=== PATIENT | female | born 1940 | race Caucasian/White ===

== ENCOUNTER 2020-01-03 12:41 | Emergency (ER) | payer MEDICARE, OTHER ==
[2020-01-03] MEDS ORDERED: fentaNYL 50 MCG/ML SDV IVPUSH ONE (13:00)
[2020-01-03] MEDS ORDERED: Lactated Ringers 1,000 ML IV ONE (13:10)
--- NOTE | 2020-01-03 13:15 | EDM.PDOC ---
ED HPI GENERAL MEDICAL PROBLEM - General Chief Complaint: General Stated Complaint: COUGHING/WEAKNESS Time Seen by Provider: 01/03/20 12:42 Source of Information: Reports: Patient - History of Present Illness INITIAL COMMENTS - FREE TEXT/NARRATIVE: 79-year-old female quite well at baseline only takes medication for hypertension who is presenting with intermittent weakness intermittent chills and nonpro ductive cough for the last 4 days. The cough is preventing her from sleeping at night. She did travel recently to visit her son who is passing away from cancer. She was seen at another facility and had a coronavirus test taken at that time and was told that the results would be back in 7 to 10 days. She has no documented fevers. She has no chest pain she has no shortness of breath no nausea no lightheadedness no vomiting but does report dry mouth. Symptoms are constant or bothersome most at night no alleviating factors radiation or other associated symptoms. She denies sore throat she denies rhinorrhea she denies nasal congestion. - Related Data Allergies Allergy/AdvReac Type Severity Reaction Status Date / Time No Known Allergies Allergy Verified 01/03/20 13:05 Home Meds: Home Meds Aspirin [Halfprin] 81 mg PO DAILY 01/03/20 [History] Benzonatate [Tessalon Perle] 100 mg PO TID PRN 10 Days #30 capsule 01/03/20 [Rx] Shun/D3/Mag11/Zinc/[employer]/Skip/Bor [Caltrate 600+D Plus Tablet] 1,200 mg PO DAILY 01/03/20 [History] Doxycycline [Vibramycin] 100 mg PO BID 7 Days #14 cap 01/03/20 [Rx] Metoprolol Succinate 200 mg PO DAILY 01/03/20 [History] Mirtazapine 15 mg PO BEDTIME 01/03/20 [History] Omeprazole Magnesium [Prilosec Otc] 20 mg PO DAILY 01/03/20 [History] Potassium Citrate [Potassium Citrate ER] 10 meq PO BID 7 Days #14 tablet.er 01/03/20 [Rx] Thiamine HCl [B-1] 250 mg PO DAILY 01/03/20 [History] hydroCHLOROthiazide [Hydrochlorothiazide] 12.5 mg PO DAILY 01/03/20 [History] ED ROS GENERAL - Review of Systems Review Of Systems: See Below Free Text/Narrative/Comment: General: No fever. Skin: No rash. Eyes: No vision problems. ENT: No sore throat. Neck: No neck stiffness. Respiratory: Per HPI Cardiac: No chest pain. Gastrointestinal: No nausea, vomiting or abdominal pain. Urinary: No dysuria. Musculoskeletal: No myalgias/arthralgias. Neurologic: No headache. ED EXAM, GENERAL - Physical Exam Exam: See Below Free Text/Narrative:: General Appearance: No acute distress, appears comfortable Skin: No rash HEENT: Normocephalic/atraumatic, sclera anicteric, mucous membranes moist Neck: Normal range of motion Chest and Lungs: Bilateral breath sounds, clear to auscultation Cardiovascular: Regular rate and rhythm, no murmur Abdomen: Soft, non-tender Back: Normal Musculoskeletal: No edema or tenderness Neurologic: Awake, alert, no obvious deficits, moving all extremities Psychiatric: Appropriate, cooperative EKG INTERPRETATION EKG Interpretation Comments: EKG obtained at 1315 demonstrates sinus tachycardia with a rate of 111 normal axis and intervals no acute ischemia Course - Vital Signs Last Recorded V/S: Last Vital Signs Temp 96.8 F L 01/03/20 14:58 Pulse 100 01/03/20 14:58 Resp 15 01/03/20 14:58 BP 151/83 H 01/03/20 14:58 Pulse Ox 96 01/03/20 14:58 - Orders/Labs/Meds Orders: Active Orders 24 hr Category Date Time Status EKG Documentation Completion [RC] STAT Care 01/03/20 13:08 Active Labs: Laboratory Tests 01/03/20 01/03/20 01/03/20 Range/Units 13:31 13:31 13:31 WBC 9.73 (4.0-11.0) K/uL RBC 4.08 L (4.30-5.90) M/uL Hgb 12.1 (12.0-16.0) g/dL Hct 37.1 (36.0-46.0) % MCV 90.9 (80.0-98.0) fL MCH 29.7 (27.0-32.0) pg MCHC 32.6 (31.0-37.0) g/dL RDW Std Deviation 44.2 (28.0-62.0) fl RDW Coeff of Lam 13 (11.0-15.0) % Plt Count 327 (150-400) K/uL MPV 9.20 (7.40-12.00) fL Neut % (Auto) 74.6 (48.0-80.0) % Lymph % (Auto) 12.3 L (16.0-40.0) % [place] % (Auto) 12.2 (0.0-15.0) % Eos % (Auto) 0.5 (0.0-7.0) % Baso % (Auto) 0.4 (0.0-1.5) % Neut # (Auto) 7.3 H (1.4-5.7) K/uL Lymph # (Auto) 1.2 (0.6-2.4) K/uL [place] # (Auto) 1.2 H (0.0-0.8) K/uL Eos # (Auto) 0.1 (0.0-0.7) K/uL Baso # (Auto) 0.0 (0.0-0.1) K/uL Nucleated RBC % 0.0 /100WBC Nucleated RBCs # 0 K/uL Lactate 1.6 (0.20-2.00) mmol/L Sodium 138 (136-145) mmol/L Potassium 3.1 L (3.5-5.1) mmol/L Chloride 101 (98-107) mmol/L Carbon Dioxide 21.3 (21.0-32.0) mmol/L BUN 16 (7.0-18.0) mg/dL Creatinine 1.3 H (0.6-1.0) mg/dL Est Cr Clr Drug Dosing TNP Estimated GFR (MDRD) 39.4 ml/min Glucose 128 H (74-106) mg/dL Calcium 8.7 (8.5-10.1) mg/dL Total Bilirubin 0.6 (0.2-1.0) mg/dL AST 8 L (15-37) IU/L ALT 9 L (14-63) IU/L Alkaline Phosphatase 72 (46-116) U/L Total Protein 7.7 (6.4-8.2) g/dL Albumin 3.0 L (3.4-5.0) g/dL Globulin 4.7 H (2.6-4.0) g/dL Albumin/Globulin Ratio 0.6 L (0.9-1.6) Meds: Medications Discontinued Medications Generic Name Dose Route Start Last Admin Trade Name Freq PRN Reason Stop Dose Admin Doxycycline Hyclate 100 mg 01/03/20 14:37 01/03/20 14:49 Vibramycin PO 01/03/20 14:38 100 mg ONETIME ONE Administration Lactated Ringer's 1,000 mls @ 999 mls/hr 01/03/20 13:10 01/03/20 13:47 Ringers, Lactated IV 01/03/20 14:10 999 mls/hr .BOLUS ONE Administration Potassium Bicarbonate 25 meq 01/03/20 14:36 01/03/20 14:49 Klor-Con Ef PO 01/03/20 14:37 25 meq NOW STA Administration Departure - Departure Time of Disposition: 14:24 Disposition: Home, Self-Care 01 Condition: Good Clinical Impression: Pneumonia, Hypokalemia - Discharge Information *PRESCRIPTION DRUG MONITORING PROGRAM REVIEWED*: Not Applicable *COPY OF PRESCRIPTION DRUG MONITORING REPORT IN PATIENT JORGE: Not Applicable Prescriptions: Potassium Citrate [Potassium Citrate ER] 10 meq PO BID 7 Days #14 tablet.er Benzonatate [Tessalon Perle] 100 mg PO TID PRN 10 Days #30 capsule PRN Reason: Cough Doxycycline [Vibramycin] 100 mg PO BID 7 Days #14 cap Instructions: Hypokalemia, Potassium Content of Foods, Community-Acquired Pneumonia, Adult, [id number] Referrals: John Rios MD [Primary Care Provider] - Forms: ED Department Discharge Additional Instructions: As we discussed your chest x-ray has a very early possible left upper lobe pneumonia. It is also possible that you could have coronavirus we continue to await the test result from the other facility. Your potassium today was also very mildly low for this reason we have started a week's worth of potassium supplements. It is very important that you follow-up with your primary care doctor both to ensure the improvement of your symptoms but also to ensure that they can repeat your blood work and ensure that your potassium has returned to normal. Your kidney function today was very mildly abnormal this was likely related to dehydration but again it is something that you are primary care doctor will need to repeat with further blood work. It is very important that you stay out of the sun as long as you are taking the antibiotic doxycycline. The following information is given to patients seen in the emergency department who are being discharged to home. This information is to outline your options for follow-up care. We provide all patients seen in our emergency department with a follow-up referral. The need for follow-up, as well as the timing and circumstances, are variable depending upon the specifics of your emergency department visit. If you don't have a primary care physician on staff, we will provide you with a referral. We always advise you to contact your personal physician following an emergency department visit to inform them of the circumstance of the visit and for follow-up with them and/or the need for any referrals to a consulting specialist. The emergency department will also refer you to a specialist when appropriate. This referral assures that you have the opportunity for follow-up care with a specialist. All of these measure are taken in an effort to provide you with optimal care, which includes your follow-up. Under all circumstances we always encourage you to contact your private physician who remains a resource for coordinating your care. When calling for follow-up care, please make the office aware that this follow-up is from your recent emergency room visit. If for any reason you are refused follow-up, please contact the [facility] Emergency Department at and asked to speak to the emergency department charge nurse. Sepsis Event Note (ED) - Evaluation Sepsis Screening Result: Possible Sepsis Risk - Focused Exam Vital Signs: Vital Signs Temp Pulse Resp BP Pulse Ox 01/03/20 14:58 96.8 F L 100 15 151/83 H 96 01/03/20 13:03 96.2 F L 119 H 16 134/73 95 - My Orders Last 24 Hours: My Active Orders 01/03/20 13:08 EKG Documentation Completion [RC] STAT - Assessment/Plan Last 24 Hours: My Active Orders 01/03/20 13:08 EKG Documentation Completion [RC] STAT Assessment:: Nontoxic-appearing 79-year-old female with mild tachycardia presenting with signs and symptoms most consistent with viral respiratory infection. Pneumonia considered as well sepsis considered as well EKG to establish sinus rhythm lactic acid to screen for sepsis CBC, CMP, chest x-ray as well. 1 L of LR ordered as well for rehydration given the mild tachycardia. Dispel pending results of above PE considered but felt unlikely ACS considered but felt unlikely there is no chest pain there is no hypoxia and cough is the predominant symptom. Patient's labs are good and she has a very mild hypokalemia. Renal function also very minimally abnormal but not acutely concerning. Will provide a dose of oral potassium here and a short course of supplementation patient has a reliable primary care doctor with whom she can follow-up. Chest x-ray demonstrates the potential for subtle upper lobe opacity given her age would cover with doxycycline. The possibility of COVID was considered we continue to await the test results given the scarcity of coronavirus testing at this time I would not repeat her swab as there is already 1 in process and right now she does not require hospitalization. Strict return precautions were discussed and understood patient will follow-up with her primary care doctor's office.
[2020-01-03 14:02] LABS: BLOOD UREA NITROGEN,BUN 16 mg/dL (7.0-18.0); CARBON DIOXIDE,CO2 21.3 mmol/L (21.0-32.0); CHLORIDE,CL 101 mmol/L (98-107); GLUCOSE RANDOM 128 mg/dL (74-106); POTASSIUM,K 3.1 mmol/L (3.5-5.1); SODIUM,NA 138 mmol/L (136-145)
--- NOTE | 2020-01-03 14:14 | CR ---
Chest: 2 views of the chest were obtained. Comparison: No prior chest imaging is available. Lung markings are diffusely increased which are asymmetrically worse within the left upper chest. Findings are most likely chronic although asymmetric findings within the left upper lung could represent an area of pneumonia. Heart size and mediastinum are normal. Scoliosis and degenerative change is noted within the spine. Impression: 1. Findings as described above. Difficult to exclude left upper lobe pneumonia. Diagnostic code #3 This report was dictated in MDT
[2020-01-03] MEDS ORDERED: Potassium Bicarbonate 25 MEQ Tab.EFF PO STA (14:36)
[2020-01-03] MEDS ORDERED: Doxycycline 100 MG Cap PO ONE (14:37)
== END 2020-01-03 14:58 | disposition home or self-care (01) ==
LOC: MW.ED 12:41
DX: J18.9 Pneumonia, unspecified organism (principal); E87.6 Hypokalemia; R00.0 Tachycardia, unspecified; I10 Essential (primary) hypertension; Z79.82 Long term (current) use of aspirin; Z79.899 Other long term (current) drug therapy
CPT/HCPCS: 36415; 71046; 80053; 83605; 85025; 93005; 99285; A9270; J7120